=== PATIENT | female | born 1965 | race Caucasian/White ===

== ENCOUNTER → 2017-11-24 | Outpatient (CLI) | payer MEDICARE ==
[~2017-11-24] MED LIST: ACET325; AMOX500 PO; CITA20 PO; CYCL10 PO; Crutch1 EACH MISC; DOXY100 PO; HYDACE5 PO; HYDCHLSU PO; LEVFLO500 PO; LEVSOD125 PO; NAPR500 PO; Naprosyn500 MG PO; Norco 5-325 Ta1 EACH PO; OXYACE5T PO; PHENA200 PO; RXPHEN200 PO; VICODIN 5-3001 EACH PO
[2017-11-24 15:41] LABS: Free Thyroxine 0.59 ng/dL (0.70-1.60); Thyroid Stimulating Hormone 37.176 uIU/mL (0.360-4.800)
== END | disposition home or self-care (01) ==
LOC: LAB EV 15:03
PROVIDERS: Physician Assistant Surgical
DX: E03.9 Hypothyroidism, unspecified (principal)
CPT/HCPCS: 84439; 84443; 84481